=== PATIENT | female | born 1995 | race Caucasian/White ===

== ENCOUNTER 2019-03-22 12:22 | Emergency (ER) | payer MEDICAID ==
[~2019-03-22] VITALS: Wt 52.1 kg
[2019-03-22 12:30] VITALS: BP 136/63
[2019-03-22] MEDS ORDERED: predniSONE 20 MG TAB PO STA (14:11)
[2019-03-22] MEDS ORDERED: ALBUTEROL 0.083% (NEB) 2.5 MG/3 ML AMP NEB STA (14:11)
[2019-03-22] MEDS ORDERED: IPRATROPIUM (NEB) 0.5 MG/2.5 ML AMP NEB STA (14:11)
[2019-03-22] MEDS ORDERED: PRED20TA PO (14:17)
[2019-03-22] MEDS ORDERED: D-ME473S2 PO (14:17)
[2019-03-22] MEDS ORDERED: ACET500C5 PO (14:17)
--- NOTE | 2019-03-22 14:26 | ERD ---
ER Documentation Chief Complaint Chief Complaint asthma exacerbation x1wk; no relief w inhaler. hx anxiety. HPI 23-year-old female with past medical history of questionable mild asthma, anx iety disorder who presents with 1 week complaint of cough, fever runny nose, generalized weakness. Cough productive of yellow-green sputum. Also with runny nose and intermittent nausea but no vomiting reports subjective fevers at home. She otherwise denies abdominal pain, diarrhea, shortness of breath or dyspnea on exertion, urinary symptoms. was diagnosed with asthma as a child but is unsure time in place of diagnosis, not on any asthma maintenance medications, never hospitalized for any asthma related symptoms. States she has a PMD she sees and recently started on medications of Seroquel, Carbamazepine for anxiety. She otherwise is without complaints reporting no allergies to medications all vaccinations up-to-date. ROS All systems reviewed and are negative except as per history of present illness. Medications Home Meds Active Scripts Albuterol Sulfate* (Ventolin HFA*) 18 Gm Hfa.aer.ad, 2 PUFF INHALATION Q6H, #1 INHALER Prov:WILLIAM BENSON-C 03/22/19 Dextromethorphan Hb-Promethazine Hcl* (Promethazine DM* Syrup) 473 Ml Syrup, 5 ML PO Q6 PRN for COUGH for 7 Days, ML Prov:WILLIAM BENSON-C 03/22/19 Acetaminophen* (Tylophen*) 500 Mg Capsule, 1 CAP PO Q6H PRN for PAIN AND OR ELEVATED TEMP, #20 CAP Prov:WILLIAM BENSON PA-C 03/22/19 Prednisone* (Prednisone*) 20 Mg Tab, 40 MG PO DAILY for 4 Days, TAB Prov:HUNTER BENSONHO PA-C 03/22/19 Allergies Allergies: Coded Allergies: No Known Allergy (Unverified , 03/22/19) Physical Exam Vitals Vital Signs Date Temp Pulse Resp B/P (MAP) Pulse Ox O2 O2 Flow FiO2 Time Delivery Rate 03/22/19 100 18 98 Room Air 16:08 03/22/19 79 19 97 21 14:53 03/22/19 98.1 113 20 136/63 95 12:30 (87) Physical Exam I have reviewed the triage vital signs. Const: Well nourished, well developed, appears stated age Eyes: PERRL, no conjunctival injection HENT: NCAT, Neck supple without meningismus CV: RRR, Warm, well-perfused extremities RESP: Unlabored respiratory effort, mild expiratory wheezing throughout lung flynn, no crackles or rhonchi, good inspiratory effort GI: soft, non-tender, non-distended, no masses MSK: No gross deformities appreciated Skin: Warm, dry. No rashes Neuro: grossly non focal Psych: Appropriate mood and affect. Results 24 hrs Current Medications Medications Dose Sig/[place] Start Time Status Last (Trade) Ordered Route PRN Stop Time Admin Dose Reason Admin Albuterol 5 mg ONCE STAT 03/22/19 DC 03/22/19 (Proventil NEB 14:11 03/22/19 14:51 0.083% (Neb)) 14:14 Ipratropium 0.5 mg ONCE STAT 03/22/19 DC 03/22/19 [place] NEB 14:11 03/22/19 14:51 (Atrovent 14:14 0.02% (Neb)) Prednisone 40 mg ONCE STAT 03/22/19 DC 03/22/19 (Prednisone) PO 14:11 03/22/19 14:23 14:14 Procedures/MDM 23-year-old female who presents with complaint of productive cough, fevers. Patient with reported history of mild mild asthma but not on any maintenance medications. Patient has expiratory wheezing on exam, I have elected to treat as asthma exacerbation. Given length of symptoms and productive cough will rule out pneumonia with x-ray. She otherwise is afebrile does not exhibit any symptoms concerning for disseminated infection. She is hemodynamically stable with normal O2 saturations and otherwise reassuring exam. Presents with cough and expiratory wheezing ML 2/2 asthma exacerbation. Mild exacerbation: No AMS, silent respirations, belly-breathing, or other sign of impending ventilatory failure. Patient diagnosed with asthma years prior. Never intubated or admitted to the hospital for asthma exacerbation. Unlikely PNA, CHF, COPD (Nonsmoker), FBAO, GERD. Workup Defer labs and imaging given clinically in exacerbation of known asthma with similar exacerbation presentations per patient. X-ray with Therapies: Prednisone 40 mg PO. Albuterol 2.5-5mg Ipratropium 0.5mg x1 Reassessment: Patient improved with albuterol and ipratropium in less than 3 hours. Disposition: Discharge home with return precautions. Aside from this acute exacerbation patient has been well controlled on baseline home regimen. Will discharge with albuterol inhaler Rx short steroid course, no plan to increase home asthma regimen. Advised to follow up with primary care physician within next 24-48 hours. DISPOSITION PLAN: We discussed follow up with the patient's primary care doctor within 24 to 48 hours. Patient counseled regarding my diagnostic impression and care plan. Prior to discharge all questions answered. Pt agrees with treatment plan and understands strict return precautions. Precautionary instructions provided including instructions to return to the ER if not improving or for any worsening or changing symptoms or concerns. Disclaimer: Inadvertent spelling and grammatical errors are likely due to EHR/dictation software use and do not reflect on the overall quality of patient care. Also, please note that the electronic time recorded on this note does not necessarily reflect the actual time of the patient encounter. Departure Diagnosis: Primary Impression: Asthma exacerbation Additional Impression: Cough Condition: Stable Patient Instructions: Asthma, Acute (Adult) Referrals: [facility] YOU HAVE RECEIVED A MEDICAL SCREENING EXAM AND THE RESULTS INDICATE THAT YOU DO NOT HAVE A CONDITION THAT REQUIRES URGENT TREATMENT IN THE EMERGENCY DEPARTMENT. FURTHER EVALUATION AND TREATMENT OF YOUR CONDITION CAN WAIT UNTIL YOU ARE SEEN IN YOUR DOCTORS OFFICE WITHIN THE NEXT 1-2 DAYS. IT IS YOUR RESPONSIBILITY TO MAKE AN APPOINTMENT FOR FOLOW-UP CARE. IF YOU HAVE A PRIMARY DOCTOR --you should call your primary doctor and schedule an appointment IF YOU DO NOT HAVE A PRIMARY DOCTOR YOU CAN CALL OUR PHYSICIAN REFERRAL HOTLINE AT IF YOU CAN NOT AFFORD TO SEE A PHYSICIAN YOU CAN CHOSE FROM THE FOLLOWING [facility] [address] [facility] [address] [facility] [facility] [address] [facility]. [facility] [address] [facility] [address] [facility]. [facility]. [address] Additional Instructions: Call your primary care doctor TOMORROW for an appointment during the next 2-3 days.See the doctor sooner or return here if your condition worsens before your appointment time. Asegrese de hacer un seguimiento con hawkins mdico regular despus del sixto. WILLIAM BENSON PA-C March 22, 2019 14:26
[2019-03-22] MEDS ORDERED: ALBU18HF INHALATION (14:53)
[2019-03-22 16:08] VITALS: PULSE 100; RESP 18
== END 2019-03-22 16:09 | disposition home or self-care (01) ==
LOC: FTE 12:22
DX: J45.901 Unspecified asthma with (acute) exacerbation (principal)
CPT/HCPCS: 71046; 94664; J7512; Z7502; Z7610